=== PATIENT | female | born 1995 | race American Indian/Alaskan Native ===

== ENCOUNTER 2021-12-28 23:12 | Emergency (ER) | payer SELFPAY ==
[2021-12-28] MEDS ORDERED: Ondansetron 4 MG/2 ML SDV IVPUSH ONE (23:38)
[2021-12-28] MEDS ORDERED: Sodium Chloride 0.9% 1,000 ML IV ONE (23:38)
[2021-12-28] MEDS ORDERED: Ketorolac 30 MG/ML SDV IM ONE (23:38)
[2021-12-28] MEDS ORDERED: Diphtheria,Pertussis(Acell),Tetanus Vaccine 0.5 ML Syringe IM ONE (23:40)
[2021-12-28] MEDS ORDERED: Lidocaine/Epineph/Tetracaine 3 ML Syringe TOP ONE (23:40)
[2021-12-29 00:10] LABS: BLOOD UREA NITROGEN,BUN 14 mg/dL (7.0-18.0); CARBON DIOXIDE,CO2 23.9 mmol/L (21.0-32.0); CHLORIDE,CL 107 mmol/L (98-107); GLUCOSE RANDOM 118 mg/dL (74-106); SODIUM,NA 140 mmol/L (136-145)
[2021-12-29 00:16] LABS: ESTIMATED GFR 104 mL/min (>60)
[2021-12-29] MEDS ORDERED: Lidocaine 1% 5 ML VIAL ONE (00:44)
[2021-12-29] MEDS ORDERED: Lidocaine 1% 5 ML VIAL INJECT ONE (00:45)
[2021-12-29] MEDS ORDERED: LORazepam 0.5 MG Tab PO ONE ×3 (01:32→08:47)
== END 2021-12-29 12:52 | disposition home or self-care (01) ==
LOC: MW.ED 23:12
DX: F32.A Depression, unspecified (principal); S61.512A Laceration without foreign body of left wrist, initial encounter; Z91.010 Allergy to peanuts; Z23 Encounter for immunization; Z20.822 Contact with and (suspected) exposure to COVID-19; X78.1XXA Intentional self-harm by knife, initial encounter
CPT/HCPCS: 12004; 36415; 80053; 80305; 80307; 84443; 84703; 85025; 87635; 90471; 90715; 93005; 96361; 96372; 96374; 99285; A9270; J1885; J2405; J7030; 93010; U0002

== ENCOUNTER 2022-06-02 21:19 | Emergency (ER) | payer SELFPAY ==
[2022-06-02] MEDS ORDERED: Acetaminophen 500 MG Tab PO ONE (23:11)
[2022-06-02 23:34] LABS: CARBON DIOXIDE,CO2 25.2 mmol/L (21.0-32.0); POTASSIUM,K 3.3 mmol/L (3.5-5.1)
[2022-06-02] MEDS ORDERED: cefTRIAXone 1 GM in Sodium Chloride 0.9% 50 ML IV ONE (23:44)
[2022-06-03] MEDS ORDERED: Ondansetron 4 MG/2 ML SDV IVPUSH ONE (00:03)
== END 2022-06-03 00:20 | disposition home or self-care (01) ==
LOC: MW.ED 21:19
DX: N12 Tubulo-interstitial nephritis, not specified as acute or chronic (principal); Z91.010 Allergy to peanuts
CPT/HCPCS: 36415; 80053; 81001; 81025; 84702; 85025; 86850; 86900; 86901; 96365; 96375; 99283; A9270; J0696; J2405; J7050

== ENCOUNTER 2023-02-21 01:28 | Emergency (ER) | payer MEDICAID ==
[2023-02-21 02:10] LABS: BASOPHILS ABSOLUTE AUTO 0.02 K/uL (0.00-0.20); BASOPHILS PERCENT AUTO 0.3 % (0.0-1.0); EOSINOPHILS ABSOLUTE AUTO 0.13 K/uL (0.00-0.45); HEMATOCRIT 33.1 % (37.0-47.0); HEMOGLOBIN 11.8 g/dL (12.0-16.0); IMMATURE GRAN ABSOLUTE AUTO 0.01 K/uL (0.00-0.05); IMMATURE GRAN PERCENT AUTO 0.2 % (0.0-0.4); LYMPHOCYTES ABSOLUTE AUTO 1.63 K/uL (1.00-4.80); LYMPHOCYTES PERCENT AUTO 24.9 % (24.0-44.0); MEAN CORPUSCULAR HGB CONC 35.6 g/dL (32.0-36.0); MEAN CORPUSCULAR VOLUME 81.3 fL (83.0-99.0); MEAN PLATELET VOLUME 10.1 fL (9.4-12.3); MONOCYTES ABSOLUTE AUTO 0.58 K/uL (0.00-0.80); MONOCYTES PERCENT AUTO 8.9 % (0.0-8.0); NEUTROPHILS ABSOLUTE AUTO 4.18 K/uL (1.80-7.70); NEUTROPHILS PERCENT AUTO 63.7 % (41.0-71.0); PLATELET COUNT,PLT 246 K/uL (150-400); RED BLOOD CELL COUNT 4.07 M/uL (4.10-5.30); WHITE BLOOD CELL COUNT,WBC 6.55 K/uL (3.9-11.3)
[2023-02-21 02:33] LABS: A/G RATIO 0.8 (0.9-1.6); ALBUMIN 3.4 g/dL (3.4-5.0); BILIRUBIN TOTAL 0.2 mg/dL (0.2-1.0); CALCIUM 8.5 mg/dL (8.5-10.1); CARBON DIOXIDE,CO2 24.6 mmol/L (21.0-32.0); CREATININE 0.7 mg/dL (0.6-1.0); EST CRCL DRUG DOSING (CG) 112.01 mL/min; POTASSIUM,K 3.3 mmol/L (3.5-5.1); PROTEIN TOTAL,TP 7.6 g/dL (6.4-8.2)
== END 2023-02-21 03:20 | disposition home or self-care (01) ==
LOC: MW.ED 01:28
DX: O99.891 Other specified diseases and conditions complicating pregnancy (principal); R10.32 Left lower quadrant pain; Z91.010 Allergy to peanuts; Z3A.01 Less than 8 weeks gestation of pregnancy
CPT/HCPCS: 36415; 76815; 76815-26; 80053; 84702; 85025; 99283; 99284

== ENCOUNTER 2023-09-10 12:20 | Inpatient (IN) | payer MEDICAID ==
[2023-09-10] MEDS ORDERED: Sodium Chloride 0.9% 20 ML SDV IV PRN (12:43)
[2023-09-10] MEDS ORDERED: Lidocaine 1% 50 ML MDV INJECT PRN (12:43)
[2023-09-10] MEDS ORDERED: Simethicone 80 MG Tab.Chew PO PRN (12:43)
[2023-09-10] MEDS ORDERED: Water For Irrigation,Sterile 1,000 ML Container IRR PRN (12:43)
[2023-09-10] MEDS ORDERED: Carboprost Tromethamine 250 MCG/1 mL Vial IM PRN (12:43)
[2023-09-10] MEDS ORDERED: Terbutaline 1 MG/ML SDV SUBCUT PRN (12:43)
[2023-09-10] MEDS ORDERED: Methylergonovine 0.2 MG/1 ML Amp IM PRN (12:43)
[2023-09-10] MEDS ORDERED: Misoprostol 25 MCG (1/4 of 100 MCG) Tab VAG PRN ×2 (12:43)
[2023-09-10] MEDS ORDERED: Tranexamic Acid IN NACL,ISO-OS 1,000 MG in Premix Bag 1 BAG IV PRN (12:43)
[2023-09-10] MEDS ORDERED: Sodium Chloride 0.9% 10 ML Syringe FLUSH PRN (12:43)
[2023-09-10] MEDS ORDERED: Lanolin 100% Cream 7 GM Tube TOP PRN (12:43)
[2023-09-10] MEDS ORDERED: Butorphanol 2 MG/ML SDV IVPUSH PRN (12:43)
[2023-09-10] MEDS ORDERED: Docusate Sodium 100 MG Cap PO PRN (12:43)
[2023-09-10] MEDS ORDERED: Sodium Chloride 0.9% 2.5 ML Syringe FLUSH PRN (12:43)
[2023-09-10] MEDS ORDERED: Oxytocin/0.9 % Sodium Chloride 30 UNIT/500 ML BAG IV SCH (12:45)
[2023-09-10 13:11] LABS: HEMATOCRIT 29.8 % (37.0-47.0); HEMOGLOBIN 10.3 g/dL (12.0-16.0); MEAN CORPUSCULAR HGB CONC 34.6 g/dL (32.0-36.0); MEAN CORPUSCULAR VOLUME 83.9 fL (83.0-99.0); MEAN PLATELET VOLUME 9.6 fL (9.4-12.3); PLATELET COUNT,PLT 272 K/uL (150-400); RED BLOOD CELL COUNT 3.55 M/uL (4.10-5.30); WHITE BLOOD CELL COUNT,WBC 7.09 K/uL (3.9-11.3)
[2023-09-10] MEDS: Lactated Ringers 1,000 ML IV SCH (13:40)
[2023-09-10] MEDS: Oxytocin/0.9 % Sodium Chloride 30 UNIT/500 ML BAG IV SCH (13:40)
[2023-09-10 13:43] LABS: AMPHETAMINES SCREEN, URINE NEGATIVE (CUTOFF=500); BARBITURATE SCREEN,URINE NEGATIVE (CUTOFF=200); BENZODIAZEPINES SCREEN,URINE NEGATIVE (CUTOFF=150); BUPRENORPHINE SCREEN,URINE NEGATIVE (CUTOFF=10); METHADONE SCREEN, URINE NEGATIVE (CUTOFF=200); METHAMPHETAMINES SCREEN, URINE NEGATIVE (CUTOFF=500); OXYCODONE SCREEN,URINE NEGATIVE (CUT0FF=100); PCP SCREEN,URINE NEGATIVE (CUTOFF=25); THC SCREEN,URINE 20 NG/ML NEGATIVE (CUTOFF=50)
[2023-09-10] MEDS ORDERED: ePHEDrine 50 MG/ML SDV IVPUSH PRN ×2 (15:02)
[2023-09-10] MEDS ORDERED: Phenylephrine HCl In 0.9% NaCl 1 MG/10 ML Syringe IVPUSH PRN (15:02)
[2023-09-10] MEDS: Ropivacaine HCl/PF 400 MG in Premix Bag 1 BAG EPIDUR SCH (15:19)
[2023-09-10] MEDS ORDERED: dexmedeTOMIDine HCl 200 MCG/2 ML SDV ONE (15:20)
[2023-09-10] MEDS: Ferrous Sulfate 325 MG Tab PO SCH (17:52)
[2023-09-10] MEDS: Misoprostol 200 MCG Tab PO PRN (20:12)
[2023-09-10] MEDS: Ibuprofen 800 MG Tab PO PRN (22:08)
[2023-09-10] MEDS: Benzocaine/Menthol 20%-0.5% Spray 78 GM Cannister TOP PRN (22:09)
[2023-09-10] MEDS: Witch Hazel Medicated Pads 40/Jar TOP PRN (22:09)
[2023-09-11 05:28] LABS: PH,UMBILICAL ARTERIAL 7.286 (7.18-7.38)
[2023-09-11 05:29] LABS: PH,UMBILICAL VENOUS 7.361 (7.25-7.45)
[2023-09-11 07:06] LABS: HEMATOCRIT 30.1 % (37.0-47.0); MEAN CORPUSCULAR HGB CONC 33.2 g/dL (32.0-36.0); MEAN CORPUSCULAR VOLUME 84.3 fL (83.0-99.0); MEAN PLATELET VOLUME 9.3 fL (9.4-12.3); PLATELET COUNT,PLT 254 K/uL (150-400); RED BLOOD CELL COUNT 3.57 M/uL (4.10-5.30); WHITE BLOOD CELL COUNT,WBC 12.28 K/uL (3.9-11.3)
[2023-09-11] MEDS: Prenatal Multivitamin with Calcium/Folic Acid/Iron Tab PO SCH (08:26)
[2023-09-11] MEDS ORDERED: Non-Formulary Medication 1 Each (Cholecalciferol (Vitamin D3) [Vitamin D3] 1,250 MCG Table PO SCH (09:00)
[2023-09-11] MEDS: Acetaminophen 500 MG Tab PO PRN (18:32)
== END 2023-09-12 11:00 | disposition home or self-care (01) | DRG 807 ==
LOC: MW.OB 12:20 → OBSVTOIN 12:20 → MW.OB 23:16
PROVIDERS: ADMIT Obstetrics & Gynecology; ATTEND Obstetrics & Gynecology Obstetrics
PROC: 10E0XZZ Delivery of Products of Conception, External Approach (ICD-10-PCS; principal; 2023-09-10)
PROC: 0HQ9XZZ Repair Perineum Skin, External Approach (ICD-10-PCS; 2023-09-10)
PROC: 3E0R3BZ Introduction of Anesthetic Agent into Spinal Canal, Percutaneous Approach (ICD-10-PCS; 2023-09-10)
PROC: 00HU33Z Insertion of Infusion Device into Spinal Canal, Percutaneous Approach (ICD-10-PCS; 2023-09-10)
PROC: 3E0P7VZ Introduction of Hormone into Female Reproductive, Via Natural or Artificial Opening (ICD-10-PCS; 2023-09-10)
PROC: 10907ZC Drainage of Amniotic Fluid, Therapeutic from Products of Conception, Via Natural or Artificial Opening (ICD-10-PCS; 2023-09-10)
DX: O99.02 Anemia complicating childbirth (principal); Z37.0 Single live birth; O69.1XX0 Labor and delivery complicated by cord around neck, with compression, not applicable or unspecified; O70.0 First degree perineal laceration during delivery; Z3A.38 38 weeks gestation of pregnancy; Z90.49 Acquired absence of other specified parts of digestive tract
CPT/HCPCS: 36415; 51702; 59025; 59409; 59414; 80305-QW; 82803; 85027; 86592; 86850; 86900; 86901; A9270-GY; J2590; J2795; J3490; J7120

== ENCOUNTER 2024-07-04 12:15 | Emergency (ER) | payer MEDICAID | END 2024-07-04 12:47 | disposition home or self-care (01) | LOC: MW.ED 12:15 | DX: N61.0 Mastitis without abscess (principal); Z91.010 Allergy to peanuts | CPT/HCPCS: 99283 ==

== ENCOUNTER 2024-09-24 22:27 | Emergency (ER) | payer MEDICAID ==
[2024-09-24 23:42] LABS: HEMATOCRIT 40.3 % (37.0-47.0); HEMOGLOBIN 13.7 g/dL (12.0-16.0); MEAN CORPUSCULAR HEMOGLOBIN 28.8 pg (28.0-32.0); MEAN CORPUSCULAR VOLUME 84.7 fL (83.0-99.0); MEAN PLATELET VOLUME 10.1 fL (9.4-12.3); PLATELET COUNT,PLT 220 K/uL (150-400); RED BLOOD CELL COUNT 4.76 M/uL (4.10-5.30); WHITE BLOOD CELL COUNT,WBC 2.63 K/uL (3.9-11.3)
[2024-09-25 00:01] LABS: CALCIUM 8.9 mg/dL (8.5-10.1); CARBON DIOXIDE,CO2 26.3 mmol/L (21.0-32.0); EST CRCL DRUG DOSING (CG) 74.02 mL/min; POTASSIUM,K 3.7 mmol/L (3.5-5.1)
[2024-09-25 00:22] LABS: APPEARANCE,URINE CLEAR; BILIRUBIN,URINE NEGATIVE (NEGATIVE); COLOR,URINE YELLOW; GLUCOSE,URINE NEGATIVE (NEGATIVE); KETONES,URINE 15 mg/dL (NEGATIVE); LEUKOCYTE ESTERASE,URINE NEGATIVE (NEGATIVE); NITRITE,URINE NEGATIVE (NEGATIVE); OCCULT BLOOD,URINE MODERATE (NEGATIVE); PROTEIN,URINE TRACE mg/dL (NEGATIVE); UROBILINOGEN,URINE 0.2 EU/dL (<2.0)
[2024-09-25 00:30] LABS: BASOPHILS ABSOLUTE MAN 0.03 K/uL (0.00-0.20); BASOPHILS PERCENT MAN 1 % (0-1); EOSINOPHILS ABSOLUTE MAN 0.05 K/uL (0.00-0.45); EOSINOPHILS PERCENT MAN 2 % (0-6); LYMPHOCYTES ABSOLUTE MAN 1.13 K/uL (1.00-4.80); LYMPHOCYTES PERCENT MAN 43 % (24-44); MONOCYTES ABSOLUTE MAN 0.55 K/uL (0.00-0.80); MONOCYTES PERCENT MAN 21 % (0-8); SEG NEUTROPHILS ABSOLUTE MAN 0.87 K/uL (1.80-7.70); SEG NEUTROPHILS PERCENT MAN 33 % (41-71)
[2024-09-25 00:35] LABS: BACTERIA,URINE RARE (NEGATIVE); EPITHELIAL CELLS,URINE MODERATE (NONE-FEW); MUCUS,URINE MODERATE (NONE-MOD); WBC,URINE 0-2 (0-5/HPF)
[2024-09-25] MEDS: Amoxicillin 500 MG Cap PO ONE (01:00)
== END 2024-09-25 01:08 | disposition home or self-care (01) ==
LOC: MW.ED 22:27
DX: J02.0 Streptococcal pharyngitis (principal); Z91.010 Allergy to peanuts; Z79.899 Other long term (current) drug therapy
CPT/HCPCS: 36415; 80048; 81001; 85025; 87426; 87651; 99284; A9270